=== PATIENT | female | born 1980 | race Caucasian/White ===

== ENCOUNTER 2018-12-07 19:08 | Emergency (ER) | payer OTHER ==
[~2018-12-07] VITALS: Ht 165.1 cm; Wt 100.0 kg
[~2018-12-07 19:08] MED LIST: ANUSOL-HC25 MG RE; CALNA; [UNRECOGNIZED DRUG - REMARK]
[2018-12-07] MEDS ORDERED: LABETALOL200 MG PO (19:47)
[2018-12-07] MEDS ORDERED: PRENATA3 PO (19:47)
[2018-12-07 20:10] LABS: HEMOGLOBIN 12.5 g/dl (12.0-16.0); IMMATURE GRANULOCYTES 0.3 % (0.0-5.0); MEAN CELL VOLUME 87.8 fL CALC (80.0-100.0); MEAN CORPUSCULAR HGB 28.3 pG CALC (26.0-32.0); MEAN CORPUSCULAR HGB CONC 32.2 g/L CALC (32.0-36.0); NEUT# 4.9 thou/uL (2.00-7.15); RED BLOOD COUNT 4.42 mill/uL (4.20-5.60); RED CELL DISTRI WIDTH 13.6 % (11.5-15.5)
[2018-12-07 20:12] LABS: HEMATOCRIT 38.8 % (37.0-47.0)
[2018-12-07 20:25] LABS: URINE BILIRUBIN - DIPSTICK NEGATIVE (NEGATIVE); URINE BLOOD DIPSTICK LARGE (NEGATIVE); URINE COLOR YELLOW; URINE GLUCOSE - DIPSTICK NEGATIVE (NEGATIVE); URINE KETONE NEGATIVE (NEGATIVE); URINE LEUK ESTERASE NEGATIVE (NEGATIVE); URINE NITRITE - DIPSTICK NEGATIVE (Negative); URINE PROTEIN - DIPSTICK NEGATIVE (NEG-TRACE); URINE SPECIFIC GRAVITY <=1.005; URINE UROBILINOGEN - DIPSTICK 0.2 E.U./dL (0.2)
[2018-12-07 20:28] LABS: ANION GAP 13 (6-22 (CALC)); BUN 11 mg/dL (7-17); BUN/CREATININE RATIO 18 (12-20 (CALC)); CARBON DIOXIDE 22 mmol/l (22-30); CHLORIDE 108 mmol/l (95-108); CREATININE 0.6 mg/dL (0.5-1.0); GFR > 60 ML/MIN (>=60 (CALC)); GFR FOR AFR.AMER. > 60 ML/MIN (>=60 (CALC)); POTASSIUM 3.4 mmol/l (3.5-5.1); SODIUM 139 mmol/l (137-146)
[2018-12-07 20:33] LABS: URINE RBC TNTC RBC/hpf (0-5); URINE SQUAMOUS EPITHELIAL CELL FEW EPI/hpf (0-FEW)
[2018-12-07 20:45] LABS: BETA-HCG, QUANT(RESULT NUMBER) 11819 mIU/mL
[2018-12-07 22:36] VITALS: BP 128/65
== END 2018-12-07 22:33 | disposition home or self-care (01) | DRG 833 ==
LOC: ED 19:08
PROVIDERS: Emergency Medicine
DX: O20.0 Threatened abortion (principal); Z3A.09 9 weeks gestation of pregnancy

== ENCOUNTER 2019-03-17 14:32 | Emergency (ER) | payer OTHER ==
[~2019-03-17] VITALS: Ht 165.1 cm; Wt 100.0 kg
[~2019-03-17 14:32] MED LIST changes: +LABETALOL200 MG PO; +PRENATA3 PO
[2019-03-17] MEDS ORDERED: HYZAAR1 TA1 PO (14:47)
[2019-03-17 16:06] VITALS: BP 130/88
== END 2019-03-17 16:05 | disposition home or self-care (01) | DRG 153 ==
LOC: ED 14:32
DX: J06.9 Acute upper respiratory infection, unspecified (principal); I10 Essential (primary) hypertension

== ENCOUNTER 2020-05-28 14:33 | Inpatient (IN) | payer BC ==
[~2020-05-28] VITALS: Ht 165.1 cm; Wt 94.6 kg
[~2020-05-28 14:33] MED LIST changes: +HYZAAR1 TA1 PO
--- NOTE | 2020-05-28 14:42 | NUR ---
PT TO ROOM WITH STEADY GAIT
--- NOTE | 2020-05-28 14:55 | NUR ---
IV ACCESS INITIATED WITH BLOOD SPECIMENS AND URINE SPECIMENS RECEIVED. PLAN OF CARE DISCUSSED WITH PT. VEBRALIZED UNDERSTANDING. PT AWAITING MD LARIOS.
--- NOTE | 2020-05-28 14:57 | NUR ---
PT STATES THAT LAST WEEK SHE BEGAN HAVING ABD AND VOMITING. ISSUES HAD SUBSIDED UNTIL 05/27/20, PT HAS HAD INTERMITTENT ABD PAIN AND VOMITING. PT IS AOX4. DENIES ANY C/P, SOB, DIRRAHEA OR WEAKNESS.
[2020-05-28] MEDS ORDERED: HYDROCHLOROT25 MG PO (15:02)
[2020-05-28 15:23] LABS: IMMATURE GRANULOCYTES 0.2 % (0.0-5.0); MEAN CELL VOLUME 88.6 fL CALC (80.0-100.0); MEAN CORPUSCULAR HGB 27.7 pG CALC (26.0-32.0); MEAN CORPUSCULAR HGB CONC 31.3 g/dL CAL (32.0-36.0); NEUT# 3.64 thou/uL (2.00-7.15); RED BLOOD COUNT 5.6 mill/uL (4.20-5.60); RED CELL DISTRI WIDTH 13.2 % (11.5-15.5)
[2020-05-28 15:28] LABS: HEMATOCRIT 49.6 % (37.0-47.0); HEMOGLOBIN 15.5 g/dl (12.0-16.0)
--- NOTE | 2020-05-28 15:33 | NUR ---
IVF INITIATED TO [facility] SITE, INFUSING WIHTOUT DIFFICULTY. PT UPDATED ON PLAN OF CARE. VEARLIZED UNDERSTANDING. DENIES ANY NEEDS.
[2020-05-28 15:35] LABS: URINE BILIRUBIN - DIPSTICK NEGATIVE (NEGATIVE); URINE BLOOD DIPSTICK MODERATE (NEGATIVE); URINE COLOR YELLOW; URINE GLUCOSE - DIPSTICK NEGATIVE (NEGATIVE); URINE KETONE NEGATIVE (NEGATIVE); URINE NITRITE - DIPSTICK NEGATIVE (Negative); URINE PROTEIN - DIPSTICK 30 mg/dL (NEG-TRACE); URINE UROBILINOGEN - DIPSTICK 0.2 E.U./dL (0.2)
[2020-05-28 15:44] LABS: URINE LEUK ESTERASE LARGE (NEGATIVE); URINE SQUAMOUS EPITHELIAL CELL FEW EPI/hpf (0-FEW)
[2020-05-28 16:15] LABS: ALBUMIN 4.6 g/dL (3.2-5.0); ALKALINE PHOSPHATASE 95 u/l (38-126); AMYLASE 88 u/l (30-110); ANION GAP 16 (6-22 (CALC)); BILIRUBIN, TOTAL 0.7 mg/dL (0.0-1.4); BUN 19 mg/dL (7-17); BUN/CREATININE RATIO 23 (12-20 (CALC)); CARBON DIOXIDE 26 mmol/l (22-30); CHLORIDE 104 mmol/l (95-108); CREATININE 0.8 mg/dL (0.5-1.0); GFR > 60 ML/MIN (>=60 (CALC)); GFR FOR AFR.AMER. > 60 ML/MIN (>=60 (CALC)); LIPASE 50 u/l (23-300); POTASSIUM 3.1 mmol/l (3.5-5.1); SGOT/AST 25 u/l (14-36); SODIUM 142 mmol/l (137-146); TOTAL PROTEIN 8.4 g/dL (6.3-8.2)
--- NOTE | 2020-05-28 16:35 | NUR ---
PT RELOCATED TO ROOM # 10 FOR MONITORING. IV ABX AND FLUIDS INITIATED. PLAN OF CARE DISCUSSED WITH PT. VERALIZED UNDERSTANDING. DENIES ANY NEEDS. CALL LIGHT GIVEN.
--- NOTE | 2020-05-28 18:48 | NUR ---
AMBULATED TO BATHROOM WITH STEADY GAIT.
--- NOTE | 2020-05-28 18:53 | NUR ---
REPORT GIVEN TO RO FARLEY.
--- NOTE | 2020-05-28 19:00 | NUR ---
HAND OFF REPORT RECEIVED FROM
--- NOTE | 2020-05-28 20:45 | NUR ---
HAND OFF REPORT GIVEN TO PILAR IN ICU, PATIENT UNABLE TO BE TRANSFERED TO INPATIENT BED DUE TO BED ASSIGNMENT.
--- NOTE | 2020-05-28 20:47 | NUR ---
PATIENT RESTING QUIETLY, NO C/O PAIN OR DISCOMFORT, NO S/S OF DISTRESS NOTED, RESPIRATIONS EVEN AN DUNLABORED, AWAITING INPATIENT BED AVAILABILITY.
[2020-05-28 21:00] VITALS: BP 160/80
--- NOTE | 2020-05-28 21:10 | NUR ---
PATIENT TRANSPORTED TO INPATIENT REATMENT ROOM BY STRETCHER, RECEIVED BY INPATIENT NURSE, ABLE TO AMBULATE INDEPENDENTLY TO INPATIENT BED.
--- NOTE | 2020-05-28 21:15 | NUR ---
TO ICU VIA STRETCHER FROM ER. ALERT. COOPERATIVE. DENIES PAIN AT THIS TIME. STATES INTERMITTERENT PAIN (PRIMARILY EPIGASTRIC PAIN) OF FULLNESS SINCE 05/21/20. STATES HAD NORMAL BM THIS AFTERNOON. PASSING FLATUS AND BELCHING (AT TIMES). URINATING WITHOUT DIFFICULTY. SHOWED AREA AT [facility] WHERE TUBALIGATION WAS PERFORMED LAST MONTH. PT REPORTS SHE HAS BEEN ON ABT FOR INFECTION THERE. ALSO, REPORTED SHE HAD BEEN COVID POSITIVE A COUPLE MONTHS AGO. CURRENTLY IGG AND IGM POSITIVE. PT AWARE.
[2020-05-28 22:00] VITALS: BP 143/89
[2020-05-28 23:00] VITALS: BP 136/81
--- NOTE | 2020-05-28 23:22 | NUR ---
BEDRESTING. RESP EVEN AND NONLABORED. N/C VOICED
[2020-05-29] VITALS (15 sets, daily range): BP systolic 130–155; BP diastolic 53–97
--- NOTE | 2020-05-29 01:31 | NUR ---
BEDRESTING. FAMILY DELIVERED SOME ITEMS. PT REMOVED CONTACTS AND IS RESTING. IV FLUIDS INFUSING RX-TOLERATING WELL
--- NOTE | 2020-05-29 03:30 | NUR ---
bedresting. lights out. eyes closed. on airborn precautions. n/c abd pain at this time. no diarrhea since arrival
--- NOTE | 2020-05-29 04:37 | NUR ---
BEDRESTING. N/C VOICED AT THIS TIME
--- NOTE | 2020-05-29 06:26 | NUR ---
PT CALLED AND SAID THAT SHE FEELS LIKE GASTRIC REFLUX AND THINKS SHE MAY VOMIT. SICKNESS BAG TAKEN TO ROOM AND ZOFRAN GIVEN IV. BEDRESTING. DENIES PAIN. STATES PAIN HAS COME AND GONE THROUGHOUT NIGHT BUT NOT ENOUGH TO NEED PAIN MEDICATION. REMAINS ON AIRBORN PRECAUTIONS. AIR SCRUBBER IN ROOM
--- NOTE | 2020-05-29 07:15 | NUR ---
pt resting in bed with eyes closed; no apparent distress noted; easily aroused; assessment completed at this time; pt alert and oriented; denies pain at current; no n/v noted; resp even and unlabored; lungs clear; skin color wnl; ra; hr reg; strong pulses; no edema noted; sr on monitor; abd soft with bs present; pt admits to passing flatus; last bm 05/28/20; pt admits to voiding without pain or burning; no urine to inspect at this time; bsc; #patent to lac with ivf infusing without complication; no redness or edema noted at site; plan of care/meds explained; npo continued; airborne precautions continued; call light within reach; will continue to monitor
--- NOTE | 2020-05-29 08:08 | NUR ---
Dr Remhan present at bedside to assess pt and discuss plan of care
--- NOTE | 2020-05-29 08:18 | NUR ---
awake in bed; no apparent distress noted; pt offers no complaints; sr on monitor; iv intact and patent; no redness or edema noted at site; call light within reach; will continue to monitor
--- NOTE | 2020-05-29 09:10 | NUR ---
pt transferred to radiology via in stable condition
--- NOTE | 2020-05-29 09:52 | NUR ---
pt received back from radiology; per radiology technician, pt vomited contrast, Dr Rehman notified per radiology; test could not be completed; per radiology, pt to return to unit
--- NOTE | 2020-05-29 10:40 | NUR ---
consent for OR obtained as per orders
--- NOTE | 2020-05-29 10:50 | NUR ---
pt medicated for pain as per request; iv intact and patent; call light within reach; will continue to monitor
--- NOTE | 2020-05-29 11:58 | NUR ---
resting in bed with eyes closed; admits to pain relief; no apparent distress noted; pt offers no complaints; iv intact and patent; sr on monitor; o2 sat 94% when awakened; 200cc urine noted to bsc; pt deny needs; call light within reach; will continue to monitor
--- NOTE | 2020-05-29 13:47 | NUR ---
pt transferred to OR via stretcher in stable condition;
--- NOTE | 2020-05-29 16:13 | NUR ---
pt in OR
--- NOTE | 2020-05-29 16:50 | NUR ---
female pt received from OR to icu bed 6 via stretcher accompanied by OR staff in stable condition; pt ambulatory to bsc then bed with steady gait; offers no complaints at this time; pt alert and oriented; no n/v noted at this time; resp even and unlabored; lungs clear; skin color wnl; o2 per nc; hr reg; strong pulses; no edema noted; scds placed; abd soft with bs absent; pt cont to void without pain or burning; bsc; #20 to lac with ivf infusing without complication; no redness or edema noted at site; abd incisions/ dressings x3 noted cdi; no drainage; abd binder intact; plan of care/ cough, turning and deep breathing explained/ IS explained/ up to chair explained; ice chips provided; call light within reach; will continue to monitor
--- NOTE | 2020-05-29 18:13 | NUR ---
pt awake in bed; admits to pain relief; no apparent distress noted; pt offers no complaints; iv intact and patent; no redness or edema noted at site; sr on monitor; scds intact; npo; IS at bedside; pt has been instructed on IS use; call light within reach
--- NOTE | 2020-05-29 20:30 | NUR ---
awake. denies pain. abd binder in place. abd dsgs x3 cdi. bowel sounds hypoactive. teletypesetter monitor shows sinus rhythm. #20 lac. rl infusing @ 100cchr. few ice chips given. denies n/v. up to bedside commode. voided well. fall & air/contact precautions cont.
--- NOTE | 2020-05-29 22:00 | NUR ---
up to bedside chair.
--- NOTE | 2020-05-29 22:30 | NUR ---
ambulated self to br. voided well. no c/o voiced.
--- NOTE | 2020-05-29 22:45 | NUR ---
assisted back to bed per request. didier rodgers.
[2020-05-30] VITALS (10 sets, daily range): BP systolic 133–162; BP diastolic 68–89
--- NOTE | 2020-05-30 00:01 | NUR ---
eyes closed. nad. vehicle monitor technician shows sinus rhythm hr 74.
--- NOTE | 2020-05-30 02:00 | NUR ---
resting quietly. resps even & unlabored. no apparent distress.
--- NOTE | 2020-05-30 04:00 | NUR ---
eyes closed. nad. no n/v. clinical research monitor shows sinus rhythm hr 72.
--- NOTE | 2020-05-30 07:35 | NUR ---
pt awake in bed; no apparent distress noted; pt offers no complaints; assessment completed at this time; pt alert and oriented x3; denies pain; no n/v noted; resp even and unlabored; lungs clear; skin color wnl; ra; no cough noted; IS at bedside; pt compliant with use; coughing, turning and deep breathing encouraged; hr reg; strong pulses; no edema noted; sr on monitor; bilat scds intact; abd soft/ distended with bs present/ hypoactive; pt denies passing flatus; ice chip diet explained; surgical drsgs x3 to abd cdi/ no drainage noted; abd binder intact; #20 lac with ivf infusing without complication; no redness or edema noted at site; assist to chair; plan of care/ am meds explained; call light within reach; will continue to monitor
--- NOTE | 2020-05-30 08:20 | NUR ---
awake; remains up to chair; no apparent distress noted; sr on monitor; call light within reach; will continue to monitor
--- NOTE | 2020-05-30 09:56 | NUR ---
awake; remains up to recliner; sr on monitor; iv intact and patent; no redness or edema noted at site; pt deny pain, n/v; call light within reach; will continue to monitor
--- NOTE | 2020-05-30 12:00 | NUR ---
Dr Rehman present at bedside to assess pt and discuss plan of care
--- NOTE | 2020-05-30 13:59 | NUR ---
awake in bed; offers no complaints; iv intact and patent; po fluids provided; sr on monitor; call light within reach
--- NOTE | 2020-05-30 14:46 | NUR ---
report called to med surg [facility] Wasserman. DUMP GROUNDS CHECKER; pt to transfer to med surg [id number]
--- NOTE | 2020-05-30 15:18 | NUR ---
awake in bed; aware of pending transfer; iv intact and patent; no redness or edema noted at site; pt offers no complaints; call light within reach; will continue to monitor
--- NOTE | 2020-05-30 15:36 | NUR ---
PT TRANSFERRED TO MED SURG ROOM 288 VIA WC IN STABLE CONDITION; ALL BELONGINGS SENT WITH PT; UPDATE PROVIDED TO [place] PONCE LPN
--- NOTE | 2020-05-30 16:00 | NUR ---
PT ARRIVED VIA WC WITH STAFF. IV SITE HAS SOME BLEEDING NOTED. FLUIDS INFUSING WELL.
--- NOTE | 2020-05-30 16:30 | NUR ---
PT TRYING TO PASS GAS OR HAVE A BM WANTING TO GO HOME TOMORROW.
--- NOTE | 2020-05-30 18:00 | NUR ---
IV SITE IN [facility] BEGAN LEAKING. ATTEMPTED X2 TO RESTART.UNSUCCESFUL.
--- NOTE | 2020-05-30 18:14 | NUR ---
#22G TO RAC STARTED ON 1ST ATTEMPT BY THIS WRITTER,PT TOLERATED WELL AND IV FLUIDS RE-STARTED AT THIS TIME;PT MEDICATED WITH SCHEDULED TORADOL 15MG IVP FOR PAIN RATING 3/10 ON THE PAIN SCALE;PT ENCOURAGED TO CALL FOR ASSISTANCE IF NEEDED;CALL LIGHT IN REACH
--- NOTE | 2020-05-30 20:08 | NUR ---
PT SITTING OVER ON COUCH WATCHING TV. STATES SHE IS TRYING TO MOVE AROUND AND SIT UPRIGHT. SHE REPORTS "LOTS OF BELCHING, BUT NOT PASSING MUCH GAS." ENCOURAGED PT TO CONTINUE THIS TREND. MEDICATED PT ORDERS PROVIDE. SHE DENIES ANY OTHER NEEDS AT THIS TIME, BUT HAS BEEN ENCOURAGED TO CALL NEEDS ARISE. SHE VERBALIZED UNDERSTANDING. DENIES PAIN AT THIS TIME, MED SCHEDULE REVIEWED WITH HER AT THIS TIME ALSO.
--- NOTE | 2020-05-31 00:25 | NUR ---
PT MEDICATED FOR PAIN 4/10 ON PAIN SCALE. SHE IS IN BED WITH EYES CLOSED. LIGHTS AND TV ON. APPLE JUICE PROVIDED, DENIES ANY OTHER NEEDS AT THIS ITVA.
--- NOTE | 2020-05-31 02:48 | NUR ---
PT SLEEPING IN BED WITH LIGHTS AND TV ON. NO S/O DISTRESS NOTED. CALL LIGHT W/IN REACH.
[2020-05-31 03:58] VITALS: BP 139/81
[2020-05-31 04:00] VITALS: BP 139/81; BP 149/96
--- NOTE | 2020-05-31 05:30 | NUR ---
PT MEDICATED FOR PAIN 2-09/30. DRESSING TO ABD CDI AND ABD BINDER BACK IN PLACE. PT DENIES STOOL OUTPUT, BUT IS DRINKING APPLE JUICE AND MOVING AROUND THE ROOM IN ATTEMPTS TO GET BOWELS MOVING.
[2020-05-31 06:13] LABS: ANION GAP 10 (6-22 (CALC)); BUN 11 mg/dL (7-17); BUN/CREATININE RATIO 14 (12-20 (CALC)); CARBON DIOXIDE 28 mmol/l (22-30); CHLORIDE 108 mmol/l (95-108); CREATININE 0.8 mg/dL (0.5-1.0); GFR > 60 ML/MIN (>=60 (CALC)); GFR FOR AFR.AMER. > 60 ML/MIN (>=60 (CALC)); POTASSIUM 3.2 mmol/l (3.5-5.1); SODIUM 142 mmol/l (137-146)
[2020-05-31 08:20] VITALS: BP 154/90
--- NOTE | 2020-05-31 08:20 | NUR ---
ASSESSMENT IS COMPLETED: IV SITE IS FREE FROM REDNESS OR EDEMA. HR IS REG,PULSES ARE STRONG X4, ABD IS SOFT WITH ACTIVE BS. BREATH SOUNDS ARE CLEAR, BILATERALLY. DRESSING ON ABD IS CDI. PT HAS BEEN PASSING FLATUS
[2020-05-31 10:02] VITALS: BP 154/90
--- NOTE | 2020-05-31 10:09 | NUR ---
PT HAD A BM THIS AM. RADHA HOLLEY
--- NOTE | 2020-05-31 12:15 | NUR ---
PT IS AMBULATING IN THE ROOM. CONTINUE TO OSBERVE AND MONITOR.
[2020-05-31] MEDS ORDERED: PERCOCET 5/321 COMBO PO (13:23)
--- NOTE | 2020-05-31 13:36 | NUR ---
DR LAMBERT IN TO VISIT WITH PT. AND PT TOLD HIM SHE HAD A NOTHER STOOL. WILL DISCHARGE HOME
--- NOTE | 2020-05-31 14:55 | NUR ---
PT WILL BE DISCHARGED IV SITE DISCONITNUED CATHETER INTACT. DR LAMBERT IN TO VISIT WITH PT. DRESSING INTACT. Discharge instructions given. Patient verbalizes understanding of same. Discharged in stable condition via Wheelchair to Home with family. All belongings sent with pt.
== END 2020-05-31 14:55 | disposition home or self-care (01) | DRG 769 ==
LOC: ED 14:33 → ED-I 19:05 → ED 19:23 → ICU 19:24 → MS2 05-30 15:36
PROVIDERS: Emergency Medicine; ADMIT Surgery; ATTEND Surgery
PROC: 0WQF0ZZ Repair Abdominal Wall, Open Approach (ICD-10-PCS; principal; 2020-05-29)
PROC: 0WJF4ZZ Inspection of Abdominal Wall, Percutaneous Endoscopic Approach (ICD-10-PCS; 2020-05-29)
PROC: 3E033FZ Introduction of Intracirculatory Anesthetic into Peripheral Vein, Percutaneous Approach (ICD-10-PCS; 2020-05-29)
DX: O90.89 Other complications of the puerperium, not elsewhere classified (principal); K42.0 Umbilical hernia with obstruction, without gangrene; U07.1 COVID-19; O98.53 Other viral diseases complicating the puerperium; O86.20 Urinary tract infection following delivery, unspecified; E87.6 Hypokalemia; I10 Essential (primary) hypertension; Z79.899 Other long term (current) drug therapy; Z88.8 Allergy status to other drugs, medicaments and biological substances
CPT/HCPCS: J0131; J2710; Q9967

== ENCOUNTER 2022-12-10 00:36 | Emergency (ER) | payer BC ==
[~2022-12-10] VITALS: Ht 165.1 cm; Wt 97.7 kg
[~2022-12-10 00:36] MED LIST changes: +HYDROCHLOROT25 MG PO; +PERCOCET 5/321 COMBO PO
[2022-12-10] MEDS ORDERED: NORVASC PO (01:22)
[2022-12-10] MEDS ORDERED: METOPROLOL TART50 MG PO (01:23)
[2022-12-10 01:40] LABS: BASO% 0.7 % (0-3); EOS% 1.5 % (0-8); IMMATURE GRANULOCYTES 0.1 % (0.0-5.0); LYMPH% 22.3 % (15-41); MEAN CELL VOLUME 87.6 fL CALC (80.0-100.0); MEAN CORPUSCULAR HGB 27.9 pG CALC (26.0-32.0); MEAN CORPUSCULAR HGB CONC 31.8 g/dL CAL (32.0-36.0); MONO% 6.9 % (2-13); NEUT# 5.1 thou/uL (2.00-7.15); NEUT% 68.5 % (42-76); RED BLOOD COUNT 4.27 mill/uL (4.20-5.60); RED CELL DISTRI WIDTH 12.6 % (11.5-15.5)
[2022-12-10 01:42] LABS: HEMATOCRIT 37.4 % (37.0-47.0); HEMOGLOBIN 11.9 g/dl (12.0-16.0)
[2022-12-10 01:56] LABS: ALBUMIN 3.9 g/dL (3.2-5.0); ALKALINE PHOSPHATASE 68 u/l (38-126); ANION GAP 10 (6-22 (CALC)); BUN 15 mg/dL (7-17); BUN/CREATININE RATIO 20 (12-20 (CALC)); CARBON DIOXIDE 24 mmol/l (22-30); CHLORIDE 109 mmol/l (95-108); CREATININE 0.7 mg/dL (0.5-1.0); GFR FOR AFR.AMER. > 60 ML/MIN (>=60 (CALC)); GFR OTHER RACES > 60 ML/MIN (>=60 (CALC)); POTASSIUM 3.5 mmol/l (3.5-5.1); SGOT/AST 39 u/l (14-36); SODIUM 140 mmol/l (137-146); TOTAL PROTEIN 6.9 g/dL (6.3-8.2)
[2022-12-10 01:57] LABS: BILIRUBIN, TOTAL 0.2 mg/dL (0.02-1.3)
[2022-12-10 02:10] LABS: URINE BILIRUBIN - DIPSTICK NEGATIVE (NEGATIVE); URINE BLOOD DIPSTICK TRACE-INTACT (NEGATIVE); URINE COLOR YELLOW; URINE GLUCOSE - DIPSTICK NEGATIVE (NEGATIVE); URINE KETONE NEGATIVE (NEGATIVE); URINE PROTEIN - DIPSTICK NEGATIVE (NEG-TRACE); URINE SPECIFIC GRAVITY 1.015; URINE UROBILINOGEN - DIPSTICK 0.2 E.U./dL (0.2)
[2022-12-10 02:12] LABS: URINE LEUK ESTERASE SMALL (NEGATIVE); URINE NITRITE - DIPSTICK NEGATIVE (Negative)
[2022-12-10 02:21] LABS: URINE BACTERIA MODERATE hpf; URINE MUCUS FEW hpf (NONE-FEW); URINE SQUAMOUS EPITHELIAL CELL FEW EPI/hpf (0-FEW)
[2022-12-10 02:27] LABS: TSH, 3RD GENERATION 3.52 uIU/mL (0.47 - 4.68)
[2022-12-10 02:38] VITALS: BP 136/84
[2022-12-10] MEDS ORDERED: KEFLEX500 MG PO (02:45)
== END 2022-12-10 02:40 | disposition home or self-care (01) | DRG 309 ==
LOC: ED 00:36
PROVIDERS: Emergency Medicine
DX: R00.2 Palpitations (principal); N39.0 Urinary tract infection, site not specified; I10 Essential (primary) hypertension